=== PATIENT | male | born 1960 | race African-American/Black ===

== ENCOUNTER 2021-03-06 19:34 | Emergency (ER) | payer OTHER ==
[~2021-03-06] VITALS: Ht 182.9 cm; Wt 68.0 kg
--- NOTE | ~2021-03-06 | EMS ---
[facility] [address] [place] [address] EMS Patient Care Report Name: CLAUDIO KEBEDE Room #: REG DC Montalvo#: [id number] Admission: 03/06/21 Attend Phys: Discharge: Date of : 64 Report #: [id number] THIS REPORT FOR: //name// Report Transmitted: 03/06/2021 21:36 EMS Care Summary [place], [place] Incident [id number] @ 03/06/2021 18:58 Incident Location [address] [place] [address] Patient CLAUDIO KEBEDE Male, 61 Years 1960 Patient Address homeless Patient History None Reported, Patient Allergies No known allergies, Patient Medications None Reported, Chief Complaint fall Disposition Transported No Lights/[place] Dispatch Reason Unknown Problem/Person Down Transported To [facility] Narrative ems met [facility] on scene. [facility] stated bystanders reported pt was laying in street. [facility] stated pt was ambulatory upon their arrival. pt met at ambulance with [facility]. pt alert and confused gcs 14. pt has an odor consistent with an alcohol containing beverage. pt slurred his words. pt was walking with a cane. pt stated he is not blind. pt has obvious lacs and abrasions to his face. pt [address] [address] EMS Patient Care Report Name: CLAUDIO KEBEDE Room #: REG DC Montalvo#: [id number] Admission: 03/06/21 Attend Phys: Discharge: Date of : 64 Report #: [id number] stated he fell earlier but is ok. pt stated to [facility] his name is "Clauido Connelly". pt stated he believes he is in [place]. pt could not provide his name. [facility] attempted to assist pt into ambulance. pt became argumentative and confrontational with [facility]. pt then stated hes not going to the hospital and sat on ems step and refused to enter ambulance. pt was assisted onto ems cot. pt was secured in a semi fowlers position without incident. a bottle of vodka came from pts clothes that was mostly empty. pt continued to refuse to give his name and then stated his name is "Claudio Kebede". pt could not provide his ssn. pt maintained he believes he is in [place]. pt repeatedly "do you know who I am". "you must not know who the fuck I am boy". pt could not provide if loc or any blood thinners. pts lac to forehead was bandaged with 4x4 and coban. pt was transported non emergent to [facility]. pt did not want ems touching him. pt would become agitated if touched. transport was uneventful and pt rested on ems cot continuously stating "you dont know who the fuck I am". pt care was transferred to appropriate staff and ems goes back in service. pts clothes were left with pt. Initial Vitals @19:09P: 106,R: 20,BP: 126/70,Pain: 0/10,GCS: 14,Glucose: 82,SpO2: 100,Revised Trauma: 12, @19:27P: 104,R: 20,BP: 122/68,GCS: 14,SpO2: 100,Revised Trauma: 12, Assessments @19:05MENTAL:Confused,SKIN:No Abnormalities,HEENT:Head/Face: Other,LUNG SOUNDS:General: No Abnormalities,Left Upper: No Abnormalities,Right Upper: No Abnormalities,Left Lower: No Abnormalities,Right Lower: No Abnormalities,ABDOMEN:General: No Abnormalities,Left Upper: No Abnormalities,Right Upper: No Abnormalities,Left Lower: No Abnormalities,Right Lower: No Abnormalities,PELVIS//GI:No Abnormalities,EXTREMITIES:Left Arm: No Abnormalities,Right Arm: No Abnormalities,Left Leg: No Abnormalities,Right Leg: No Abnormalities,PULSE:NEURO:No Abnormalities,@19:25MENTAL:Other,SKIN:No Abnormalities,HEENT:Head/Face: No Abnormalities,Eyes: No Abnormalities,Neck/Airway: No Abnormalities,LUNG SOUNDS:General: No Abnormalities,Left Upper: No Abnormalities,Right Upper: No Abnormalities,Left Lower: No Abnormalities,Right Lower: No Abnormalities,ABDOMEN:General: No Abnormalities,Left Upper: No Abnormalities,Right Upper: No Abnormalities,Left Lower: No Abnormalities,Right Lower: No Abnormalities,PELVIS//GI:No Abnormalities,EXTREMITIES:Left Arm: No Abnormalities,Right Arm: No Abnormalities,Left Leg: No Abnormalities,Right Leg: No Abnormalities,PULSE:NEURO:No Abnormalities, Impression Injury of Head Procedures @19:05ALS AssessmentResponse: UnchangedSucceeded@19:17BandagingResponse: [address] [address] EMS Patient Care Report Name: CLAUDIO KEBEDE Room #: NEPTALI [place]vo#: [id number] Admission: 03/06/21 Attend Phys: Discharge: Date of : 64 Report #: [id number] ImprovedSucceeded Timeline 18:57,Call Received 18:57,Dispatch Notified 18:58,Dispatched 18:59,En Route 19:00,On Scene 19:05,At Patient 19:05,ALS Assessment,Response: UnchangedSucceeded, 19:09,BP: 126/70 M,PULSE: 106,RR: 20 R,SPO2: 100 Ox,ETCO2: ,B,PAIN: 0,GCS: 14, 19:17,Bandaging,Response: ImprovedSucceeded, 19:19,Depart Scene 19:27,BP: 122/68 M,PULSE: 104,RR: 20 R,SPO2: 100 Ox,ETCO2: ,BG: ,PAIN: ,GCS: 14, 19:28,At Destination 19:43,Call Closed Disclaimer v1.1 Copyright 2020 [employer] This EMS Care Summary contains data elements from the applicable legal record (which may be displayed differently). It is designed to provide pertinent information for the following purposes: continuity of care, clinical quality, and state data reporting. The complete legal record is available to ED staff and administrators of the receiving hospital in [facility]'s Patient Tracker. All data is provided "as is."
[2021-03-06 20:13] LABS: ABSOLUTE NEUTROPHILS 3.5 thou/uL (1.4-8.2); BASOPHILS 1.2 % (0.0-2.0); HEMOGLOBIN 13.6 gm/dL (14.0-18.0); LYMPHOCYTES 33.2 % (24.0-44.0); MCHC 32.4 g/dL (28.0-37.0); MCV 80.3 fL (80.0-100.0); PLATELET COUNT 207 thou/uL (150-400); POLYS 54.6 % (36.0-66.0); RBC 5.23 mil/uL (4.50-6.00); RDW 16.8 % (10.5-14.5); WBC 6.4 thou/uL (4.0-11.0)
[2021-03-06 20:18] LABS: CALCIUM 8.6 mg/dL (8.5-10.1); POTASSIUM 4.2 mmol/L (3.5-5.1)
[2021-03-06 20:24] LABS: ALBUMIN 3.9 g/dL (3.4-5.0); TOTAL BILIRUBIN 0.3 mg/dL (0.2-1.0); TOTAL PROTEIN 7.6 g/dL (6.4-8.2)
[2021-03-06 22:42] VITALS: BP 102/68
== END 2021-03-06 22:46 | disposition short-term general hospital (02) ==
LOC: ER 19:34
PROVIDERS: Nurse Practitioner Family
DX: S01.81XA Laceration without foreign body of other part of head, initial encounter (principal); F10.129 Alcohol abuse with intoxication, unspecified; W18.30XA Fall on same level, unspecified, initial encounter; Y93.01 Activity, walking, marching and hiking; Y92.89 Other specified places as the place of occurrence of the external cause; Y99.9 Unspecified external cause status; Y90.9 Presence of alcohol in blood, level not specified

== ENCOUNTER 2021-08-22 23:46 | Emergency (ER) | payer OTHER ==
[~2021-08-22] VITALS: Ht 177.8 cm; Wt 74.8 kg
--- NOTE | ~2021-08-22 | EMS ---
[facility] [address] [place] [address] EMS Patient Care Report Name: ANTWAN GRUBER Room #: DEP DC [place]#: [id number] Admission: 08/22/21 Attend Phys: Discharge: 08/23/21 Date of : 64 Report #: [id number] THIS REPORT FOR: //name// Report Transmitted: 08/25/2021 12:33 EMS Care Summary [place], [place]/[facility] Incident [id number] @ 08/22/2021 23:12 Incident Location [address] [place], [place] [id number] Patient ANTWAN GRUBER Male, 61 Years 1960 Patient Address [address] [place] [address] Patient History Other,Glaucoma, Patient Allergies No known allergies, Patient Medications None Reported, Chief Complaint FINGER PAIN Disposition Transported No Lights/[place] Dispatch Reason Unknown Problem/Person Down Transported To [facility] Narrative M41 WAS DISPATCHED TO A [place] STATION ON AN UNKNOWN. ON ARRIVAL PT IS FOUND STANDING OUTSIDE THE GAS STATION ALERT AND ORIENTED GCS OF 15 AND IN NO OBVIOUS SIGNS OF DISTRESS. PT TELLS EMS THAT HE IS HAVING PAIN IN HIS LEFT PINKY FINGER [facility] [address] [place] [address] EMS Patient Care Report Name: ANTWAN GRUBER Room #: DEP ER Selvin#: [id number] Admission: 08/22/21 Attend Phys: Discharge: 08/23/21 Date of : 64 Report #: [id number] WHEN HE TRIES TO STRAIGHTEN IT AND WANTS TO GO TO THE HOSPITAL FOR EVALUATION AND TREATMENT. PT WALKS TO AMBULANCE WITH GUIDANCE DUE TO VISION PROBLEMS WHERE HE SITS ON THE STRETCHER AND REMAINS ON THE STRETCHER UNTIL STAND AND SIT IN CHAIR IN ER TRIAGE. VITALS MONITORED EN ROUTE WITH NO CHANGES IN PT CONDITION. Initial Vitals @23:37P: 104,R: 18,BP: 119/68,Pain: 6/10,GCS: 15,CO: 5,SpO2: 96,Revised Trauma: 12, @23:29P: 108,R: 18,BP: 130/89,Pain: 6/10,GCS: 15,SpO2: 96,Revised Trauma: 12, Assessments @23:25MENTAL:Place Oriented,Person Oriented,Event Oriented,Time Oriented,SKIN:HEENT:Head/Face: No Abnormalities,Neck/Airway: No Abnormalities,LUNG SOUNDS:General: No Abnormalities,ABDOMEN:General: No Abnormalities,PELVIS//GI:No Abnormalities,EXTREMITIES:Left Arm: No Abnormalities,Right Arm: No Abnormalities,Left Leg: No Abnormalities,Right Leg: No Abnormalities,PULSE:NEURO:No Abnormalities, Impression Extremity Pain Procedures @23:25ALS AssessmentResponse: UnchangedSucceeded Timeline 23:11,Call Received 23:11,Dispatch Notified 23:12,Dispatched 23:14,En Route 23:24,On Scene 23:25,At Patient 23:25,ALS Assessment,Response: UnchangedSucceeded, 23:29,BP: 130/89 M,PULSE: 108,RR: 18 R,SPO2: 96 Ox,ETCO2: ,BG: ,PAIN: 6,GCS: 15, 23:30,Depart Scene 23:37,BP: 119/68 M,PULSE: 104,RR: 18 R,SPO2: 96 Ox,ETCO2: ,BG: ,PAIN: 6,GCS: 15, 23:42,At Destination 00:02,Call Closed Disclaimer v1.1 Copyright 2020 [email or web address] This EMS Care Summary contains data elements from the applicable legal record (which may be displayed differently). It is designed to provide pertinent information for the following purposes: continuity of care, clinical quality, and state data reporting. The complete legal record is available to ED staff [address] [address] EMS Patient Care Report Name: ANTWAN GRUBER Room #: DEP DC [place]#: [id number] Admission: 08/22/21 Attend Phys: Discharge: 08/23/21 Date of : 64 Report #: [id number] and administrators of the receiving hospital in [employer]'s Patient Tracker. All data is provided "as is."
[2021-08-22] MEDS ORDERED: [UNRECOGNIZED DRUG - REMARK] (23:55)
[2021-08-23 02:25] VITALS: BP 132/76
== END 2021-08-23 04:00 | disposition home or self-care (01) ==
LOC: ER 23:46
DX: S63.257A Unspecified dislocation of left little finger, initial encounter (principal); X58.XXXA Exposure to other specified factors, initial encounter; Y93.89 Activity, other specified; Y92.89 Other specified places as the place of occurrence of the external cause; Y99.8 Other external cause status